=== PATIENT | male | born 1955 | race Caucasian/White ===

== ENCOUNTER 2020-08-11 08:16 | Outpatient (CLI) | payer BC, MEDICARE, SELFPAY | END 2020-08-11 08:17 | disposition home or self-care (01) | LOC: ANHCOVIDVC 08:16 | PROVIDERS: PCP Family Medicine | DX: Z23 Encounter for immunization (principal) | CPT/HCPCS: 0001A; 91300 ==

== ENCOUNTER 2020-09-01 08:12 | Outpatient (CLI) | payer BC, MEDICARE, SELFPAY | END 2020-09-01 08:13 | LOC: ANHCOVIDVC 08:13 | PROVIDERS: PCP Family Medicine | DX: Z23 Encounter for immunization (principal) | CPT/HCPCS: 0002A; 91300 ==

== ENCOUNTER → 2020-09-27 01:57 | Outpatient (CLI) | payer BC, MEDICARE, SELFPAY ==
[2020-09-27 17:04] LABS: SARS-CoV-2 RNA PCR Negative
== END ==
PROVIDERS: PCP Family Medicine; Visit Provider Internal Medicine Gastroenterology
DX: Z01.812 Encounter for preprocedural laboratory examination (principal); Z20.822 Contact with and (suspected) exposure to COVID-19
CPT/HCPCS: C9803; U0003; U0005

== ENCOUNTER 2020-10-27 00:46 | Day surgery (SDC) | payer BC, MEDICARE, SELFPAY ==
[2020-09-22 14:35] VITALS: BMI 29.0
[2020-10-18 10:53] VITALS: BMI 29.8
[2020-10-27 10:49] VITALS: BP 137/94; PULSE 87; RESP 16; TEMP 35.8; O2SAT 94; BMI 29.9
[2020-10-27] MEDS: LACTATED RINGERS 1,000 ML 150 ML IV CONT (10:52)
--- NOTE | 2020-10-27 12:16 | WPDANESEPPF ---
Anes - Initial Pre Proc Eval Procedure: Operation Date: 10/27/20 12:00 Proposed Procedures p Screening Colonoscopy - Fly Altamirano DO Date/Time: 10/27/20 12:16 Surgeon: Fly Altamirano DO Pre Op Diagnosis: hx colon polyps Patient Data Age: 65 Gender: M Height: 1.85 m Weight: 102.8 kg Last Vital Signs Temp 96.5 F L 10/27/20 10:49 Pulse 87 10/27/20 10:49 Resp 16 10/27/20 10:49 BP 137/94 H 10/27/20 10:49 Pulse Ox 94 10/27/20 10:49 Allergies Allergy/AdvReac Type Severity Reaction Status Date / Time Penicillins AdvReac Mild Rash Verified 10/27/20 10:48 Home Medications Medication Instructions Recorded Confirmed Type Lactobacillus acidophilus 1 100 mg PO DAILY 03/14/19 10/27/20 History billion cell capsule atorvastatin 20 mg tablet 20 mg PO DAILY 03/14/19 10/27/20 History desloratadine-pseudoephedrine ER 1 tablet PO Q12H PRN 03/14/19 10/27/20 History 2.5 mg-120 mg tab,ext.release mp 12hr glucosamine HCl 500 mg tablet 500 mg PO BID 03/14/19 10/27/20 History lansoprazole 30 mg capsule,delayed 30 mg PO DAILY 03/14/19 10/27/20 History release nabumetone 750 mg tablet 750 mg PO BID 03/14/19 10/27/20 History tadalafil 20 mg PO DAILY PRN 09/22/20 10/27/20 History xujctnqd-ezbst-plqwr-CF borate 2 tablet PO DAILY 10/18/20 10/27/20 History [[facility]] loratadine [Claritin] 10 mg PO DAILY 10/18/20 10/27/20 History losartan 50 mg PO DAILY 10/18/20 10/27/20 History Patient hx anesthesia problems: none Family hx anesthesia problems: none PMFSH Past Medical History Medical History Deviated septum Hyperlipidemia Surgical History Surgical History History of inguinal hernia repair laparoscopic left inguinal hernia repair with Progrip mesh, [place] assisted 04/16/19 History of tonsillectomy Hx of right inguinal hernia repair Open hernia repair~1979 Family History Family History Father Lung cancer Other Malignant neoplasm of prostate Social History Social History Smoking packs per day: 1.5 Smoking cigarettes per day: 30.0 Years smoked: 30 Smoking pack-years: 45.00 Smoking status: Former smoker Tobacco type: cigarettes Alcohol intake: current Substance use type: does not use Last use: 2020 Living arrangements: alone Gender identity (if verbalized by the patient): Male Spiritual care concerns: No Anes - Eval Final PreProcedure Day of Procedure 10/27/20 12:16 Patient weight: obese Heart: regular rate and rhythm Lungs: clear to auscultation Airway: Mallampati scale class II Neurological: alert and oriented Last oral intake: >/= 8 hours ASA classification: III Emergent: no Anesthetic plan: proceed Anesthesia type and monitoring: general GIVS and standard monitoring Informed Consent: The patient's anesthetic plan and its attendant risks and benefits were discussed with the patient/family/POA. Questions were solicited and answers provided to the satisfaction of the patient/family/POA.
--- NOTE | 2020-10-27 12:39 | WPDGICN ---
GI Consult Note Consult date/time: 10/27/20 12:39 HPI: Reason for visit is colonoscopy. This very pleasant gentleman seen in consultation at the request of the primary physician. Impression: Screening and surveillance colonoscopy. Patient's history adenomatous colon polyps. GERD controlled with medication. AKIL. HLD. HTN. EGD. Obesity. Recommendation: Colonoscopy. This very pleasant gentleman has a history of adenomatous colon polyps. He is here for screening and surveillance colonoscopy. He has a history of GERD well controlled on medication. His GI review systems unremarkable. Physical examination: General: very pleasant patient in no acute distress. HEENT: Head was normocephalic sclerae is clear mouth without masses neck was supple. Heart: Rate rhythm regular without S3 or S4. Lungs: CTA. Abdomen: Soft with no guarding or rigidity. Bowel sounds were active. Neurologic: Cranial nerves 2 through 12 intact. No focal defects. No clonus. Musculoskeletal system: Revealed no joint tenderness or swelling no muscle atrophy. Extremities: Reveal no significant edema. Skin: Warm and dry with normal turgor. Mental status: intact. Patient is alert and oriented. Review of Systems Review of Systems: All systems reviewed & are unremarkable except as noted in HPI and below PMFSH Past Medical History Medical History Deviated septum Hyperlipidemia Surgical History Surgical History History of inguinal hernia repair laparoscopic left inguinal hernia repair with Progrip mesh, daVinci assisted 04/16/19 History of tonsillectomy Hx of right inguinal hernia repair Open hernia repair~1979 Family History Family History Father Lung cancer Other Malignant neoplasm of prostate Social History Social History Smoking packs per day: 1.5 Smoking cigarettes per day: 30.0 Years smoked: 30 Smoking pack-years: 45.00 Smoking status: Former smoker Tobacco type: cigarettes Alcohol intake: current Substance use type: does not use Last use: 2020 Living arrangements: alone Gender identity (if verbalized by the patient): Male Spiritual care concerns: No Meds Home Medications and Allergies Home Medications Medication Instructions Recorded Confirmed Type Lactobacillus acidophilus 1 100 mg PO DAILY 11/15/19 06/30/21 History billion cell capsule atorvastatin 20 mg tablet 20 mg PO DAILY 03/14/19 10/27/20 History desloratadine-pseudoephedrine ER 1 tablet PO Q12H PRN 03/14/19 10/27/20 History 2.5 mg-120 mg tab,ext.release mp 12hr glucosamine HCl 500 mg tablet 500 mg PO BID 03/14/19 10/27/20 History lansoprazole 30 mg capsule,delayed 30 mg PO DAILY 03/14/19 10/27/20 History release nabumetone 750 mg tablet 750 mg PO BID 03/14/19 10/27/20 History tadalafil 20 mg PO DAILY PRN 09/22/20 10/27/20 History hguydjbm-lphbx-yrxzn-CF borate 2 tablet PO DAILY 10/18/20 10/27/20 History [[facility]] loratadine [Claritin] 10 mg PO DAILY 10/18/20 10/27/20 History losartan 50 mg PO DAILY 10/18/20 10/27/20 History Allergies Allergy/AdvReac Type Severity Reaction Status Date / Time Penicillins AdvReac Mild Rash Verified 10/27/20 10:48 Vital Signs Vital Signs - 24 hr 10/27/20 10:49 Temperature 35.8 C L Pulse Rate 87 Respiratory Rate 16 Blood Pressure 137/94 H Pulse Oximetry 94
[2020-10-27 13:09] VITALS: BP 127/89; PULSE 79; RESP 20; O2SAT 95
[2020-10-27 13:19] VITALS: BP 134/84; PULSE 64; RESP 20; O2SAT 99
[2020-10-27 13:29] VITALS: BP 141/90; PULSE 67; RESP 19; O2SAT 97
== END 2020-10-27 13:42 | disposition home or self-care (01) ==
PROVIDERS: PCP Family Medicine; Visit Provider Internal Medicine Gastroenterology
PROC: 0DJD8ZZ Inspection of Lower Intestinal Tract, Via Natural or Artificial Opening Endoscopic (ICD-10-PCS; CPT 45378; principal; 2020-10-27 12:00)
DX: Z12.11 Encounter for screening for malignant neoplasm of colon (principal); K63.3 Ulcer of intestine; K62.1 Rectal polyp; K57.30 Diverticulosis of large intestine without perforation or abscess without bleeding; K64.8 Other hemorrhoids; I10 Essential (primary) hypertension; E78.5 Hyperlipidemia, unspecified; G47.33 Obstructive sleep apnea (adult) (pediatric); E66.9 Obesity, unspecified; Z68.29 Body mass index [BMI] 29.0-29.9, adult; Z87.891 Personal history of nicotine dependence
CPT/HCPCS: 45381; 45380; 88305; J2704; J7120

== ENCOUNTER 2021-09-12 01:03 | Day surgery (SDC) | payer MEDICARE, SELFPAY ==
[2021-09-09 10:10] VITALS: BMI 30.8
[2021-09-12] VITALS (24 sets, daily range): BP systolic 112–142; BP diastolic 69–96; PULSE 58–85; RESP 14–24; TEMP 36.3–36.9; O2SAT 91–97; BMI 31.2; BMI 32.0
[2021-09-12] MEDS: SODIUM CHLORIDE 0.9% IV 500 ML 100 ML IV CONT (09:10)
[2021-09-12 09:12] LABS: Basophils Absolute Auto 0.1 K/mm3 (0.0-0.1); Basophils Percent Auto 1.3 % (0.2-1.2); Eosinophils Absolute Auto 0.2 K/mm3 (0-0.3); Eosinophils Percent Auto 4.1 % (0-4.4); Hematocrit 48.6 % (42.0-52.0); Hemoglobin 16.4 g/dL (14.0-18.0); Immature Granulocyte Absolute 0.02 K/mm3 (0.00-0.031); Immature Granulocyte Percent A 0.4 % (0-0.5); Lymphocytes Absolute Auto 1.48 K/mm3 (0.9-3.2); Lymphocytes Percent Auto 26.4 % (18.3-44.2); Mean Corpuscular HGB Conc 33.7 g/dl (32-36); Mean Corpuscular Hemoglobin 29.5 pg (26-34); Mean Corpuscular Volume 87.6 fl (80-100); Mean Platelet Volume 9.1 fl (7.4-10.4); Monocytes Absolute Auto 0.5 K/mm3 (0.1-0.6); Monocytes Percent Auto 8.8 % (2.6-8.5); Neutrophils Absolute Auto 3.3 K/mm3 (1.3-6.7); Platelet Count Result 220 k/mm3 (150-375); Red Blood Count 5.55 M/mm3 (4.6-6.20); Red Cell Distribution Width 12.9 % (11.5-14.5); White Blood Count 5.6 K/mm3 (4.5-10.0)
[2021-09-12 09:22] LABS: Anion Gap 6 mmol/L (8-16); Blood Urea Nitrogen 13 mg/dL (9-20); Calcium 9.1 mg/dL (8.4-10.2); Carbon Dioxide 29 mmol/L (22-30); Chloride 100 mmol/L (98-107); Estimated CRCL calculation 74 ml/min; Estimated Glomerular Filt Rate > 60; Glucose 116 mg/dL (65-110); Potassium 4.4 mmol/L (3.4-5.0); Sodium 135 mmol/L (137-145)
--- NOTE | 2021-09-12 09:48 | WPDMODSED ---
Moderate Sedation Note-Pt Data Patient Data Diagnosis: Exertional dyspnea Abnormal stress test Present Complaint: ADAMS Procedure to be performed/Plan: Left heart catheterization Allergies Allergy/AdvReac Type Severity Reaction Status Date / Time Penicillins AdvReac Mild Rash Verified 09/12/21 08:59 Home Medications Medication Instructions Recorded Confirmed Type Lactobacillus acidophilus 1 100 mg PO DAILY 03/14/19 09/12/21 History billion cell capsule atorvastatin 20 mg tablet 20 mg PO DAILY 03/14/19 09/12/21 History lansoprazole 30 mg capsule,delayed 30 mg PO DAILY 03/14/19 09/12/21 History release nabumetone 750 mg tablet 750 mg PO BID 03/14/19 09/12/21 History tadalafil 20 mg PO DAILY PRN 09/22/20 09/12/21 History uhovkrsk-ildto-oukvz-CF borate 1 tablet PO DAILY 10/18/20 09/12/21 History [[facility] [place]] losartan 50 mg PO DAILY 10/18/20 09/12/21 History loratadine-pseudoephedrine 1 tablet PO 09/09/21 History [Claritin-D 24 Hour] aspirin 81 mg PO DAILY 09/12/21 09/12/21 History Current Medications: Active Medications Sodium Chloride (Normal Saline Iv) 500 mls @ 100 mls/hr IV CONT .Q5H SANDY Last Admin: 09/12/21 09:10 Dose: 100 mls/hr Documented by: Sedation/Anesthesia: No previous sedation/anesthesia problems (including family history). [facility] Past Medical History Medical History Deviated septum Hyperlipidemia Hypertension, essential Surgical History Surgical History History of inguinal hernia repair laparoscopic left inguinal hernia repair with Progrip mesh, daVinci assisted 04/16/19 History of tonsillectomy Hx of right inguinal hernia repair Open hernia repair~1979 Status post correction of deviated nasal septum Family History Family History Father Lung cancer Sibling Breast cancer Other Malignant neoplasm of prostate Social History Social History Smoking packs per day: 1.5 Smoking cigarettes per day: 30.0 Years smoked: 30 Smoking pack-years: 45.00 Smoking status: Former smoker Tobacco type: cigarettes Second hand tobacco smoke exposure: No Smoking end date: 05/31/20 Alcohol intake: current Alcohol use details: Socially Substance use type: does not use Last use: 2020 Living arrangements: with family Gender identity (if verbalized by the patient): Male Spiritual care concerns: No Mod Sed Physical Exam Physical Exam Pre Procedural Exam: Normal: Neck, Throat, Airway, Lungs, Heart Size, Heart Rate, Heart Rhythm, Neuro Exam and Extremities and Variation: Appearance (Overweight gentleman no apparent distress) Hours since solid foods: 12 Hours since liquid intake: 12 Mallampati Classification: class II Internal Medicine - PN: Obj Da Meds/Results Medications: Active Medications Generic Name Dose Route Start Last Admin Trade Name Freq PRN Reason Stop Dose Admin Sodium Chloride 500 mls @ 100 mls/hr 09/12/21 08:30 09/12/21 09:10 Normal Saline Iv IV CONT 100 mls/hr .Q5H SANDY Administration Labs CBC & Chem 7: 09/12/21 08:57 09/12/21 08:57 Labs: Laboratory Results - last 24 hr 09/12/21 09/12/21 08:57 08:57 WBC 5.6 RBC 5.55 Hgb 16.4 Hct 48.6 MCV 87.6 MCH 29.5 MCHC 33.7 RDW 12.9 Plt Count 220 MPV 9.1 Immature Gran % (Auto) 0.4 Neut % (Auto) 59.0 Lymph % (Auto) 26.4 [place] % (Auto) 8.8 H Eos % (Auto) 4.1 Baso % (Auto) 1.3 H Lymph # (Auto) 1.48 [place] # (Auto) 0.5 Eos # (Auto) 0.2 Baso # (Auto) 0.1 Abs Immat Gran (auto) 0.02 Absolute Neuts (auto) 3.3 Absolute Nucleated RBC 0.0 Nucleated RBC % 0.0 Sodium 135 L Potassium 4.4 Chloride 100 Carbon Dioxide 29 Anion Gap 6 L BUN 13 Creatinine
--- NOTE | 2021-09-12 11:19 | ECG_ITS ---
Measurements Intervals [place] Rate: 64 P: 59 NC: 214 QRS: -38 QRSD: 125 T: -4 QT: 434 QTc: 450 Interpretive Statements SINUS RHYTHM WITH FIRST DEGREE AV BLOCK LEFT AXIS DEVIATION ANTEROSEPTAL INFARCT, AGE INDETERMINATE INFERIOR INFARCT, AGE INDETERMINATE ABNORMAL ECG Electronically Signed On 09-12-2021 12:36:50 CDT by Tc Snyder D.O.
--- NOTE | 2021-09-12 11:22 | WPDCARDPROC ---
Cardiac Cath Procedure Note Date of procedure:: 09/12/21 Performing physician:: Denilson Prabhakar MD Indication:: exertional dyspnea/abnormal stress test Brief clinical history:: this is a 66-year-old patient without prior history of coronary disease who does have hypertension and dyslipidemia. Recently a stress test demonstrated very poor functional capacity and reduce location of chest pain at a low workload although no significant ST segment deviation. Procedure Procedure performed:: Left ventriculogram coronary angiogram PCI(STAR) to the right artery Sedation/Medication given:: fentanyl 100 mg Versed 2 mg case start time 10:12 a.m. case end time 11:13 a.m. sedation provided by Arturo Cooley RN, trained observer Access site:: right femoral artery Estimated blood loss:: 50 cc Procedure note:: patient was brought to the cardiac catheterization lab in postabsorptive state where the right femoral triangle was prepared and draped in the usual fashion. Anesthesia was provided with 1% lidocaine infiltrated locally. Using the modified Seldinger technique a 5 [place] vascular sheath was placed into the right femoral artery after this left heart catheterization was carried out. A 5 [place] angled pigtail catheter was used to measure left-sided hemodynamics and to inject LV g in the CHAVEZ projection. Following this standard 5 [place] FL4 catheter was used to engage and inject the left coronary artery in multiple projections a 5 [place] JR4 catheter was used to engage and inject the right coronary artery in orthogonal projections. Following this the cineangiograms were reviewed and PCI of the right coronary artery was recommended and carried out as detailed below. Prior to PCI the 5 [place] sheath was exchanged over a guidewire for a 6 [place] sheath. The patient was systemically anticoagulated with a bolus and infusion of Angiomax during this intervention. He received aspirin and 600 mg of clopidogrel at the start of PCI. Following the case the sheath is sutured into position the pace was taken to the holding area for recovery and sheath removal. He was reporting [id number] 4 to 5/10 chest pain at the end of the procedure upon leaving the laborer powerhouse. There was no evidence of a groin hematoma. Findings:: Hemodynamics: Central aortic pressure was 138/78 left ventricle 142/0 end-diastolic pressure 16. There was no systolic gradient on pullback across the aortic valve. Left ventricle: The LV is normal in size all segments appropriately the global ejection fraction visually estimates to be about 55%. The left main coronary artery is nicely patent the left anterior descending is a moderate caliber artery extending down to around the apex. There is mild about 30-40% stenosis at the LAD ostium. In no projection does this appear to be flow-limiting the remainder of the LAD is unremarkable. The circumflex is a moderate caliber artery giving rise to the marginal branches the circumflex system is free of significant disease. The right coronary artery is large in caliber and dominant to the posterior circulation. There is a significant area of atherosclerosis beginning with an eccentric shelf-like plaque representing about 80% stenosis in the proximal to mid RCA then there is an area of ectatic dilatation followed by another area of about 70% stenosis in the 2nd portion of the RCA. The RPDA and RPL branches are free of significant disease. Intervention: The right coronary artery was engaged using a 6 [place] WRP guiding catheter. I used a 0.014 BMW guidewire to wire the vessel and advanced easily down into the RPL. The area in question was pre-dilated using a 3 x 20 mm balloon at nominal pressure 2 inflations were made to cover the entire area of disease described above. Following this I deployed a 4.0 x 26 mm [employer] drug-eluting stent attempting to cover the entire area of disease. device was deployed at 12 atmospheres. Follow
[2021-09-12] MEDS: SODIUM CHLORIDE 0.9% IV 1,000 ML 125 ML IV CONT (13:12)
--- NOTE | 2021-09-12 16:15 | ADMGEN ---
This patient, Brock Ledezma, was admitted to IMU Room 209-01. Patient/family oriented to hospital policies and general routines including ID bracelet, bed and alarms, visiting hours, pain management, procedures, bathroom and other care routines, personal items, smoking policy, room service/diet, and visiting hours. Information on how to activate the Rapid Response Team has been discussed. Patient/Family are encouraged to report perceived risks to care and to ask questions if they do not understand what they are told or what they should do.
[2021-09-13] VITALS (7 sets, daily range): BP systolic 120–130; BP diastolic 75–79; PULSE 63–91; RESP 12–16; TEMP 36.7–37.1; O2SAT 94
--- NOTE | 2021-09-13 05:11 | ECG_ITS ---
Measurements Intervals [place] Rate: 94 P: 54 PA: 167 QRS: -56 QRSD: 122 T: 60 QT: 346 QTc: 435 Interpretive Statements SINUS RHYTHM INTRAVENTRICULAR CONDUCTION DELAY ANTEROSEPTAL INFARCT, AGE INDETERMINATE INFERIOR INFARCT, AGE INDETERMINATE ABNORMAL ECG Electronically Signed On 09-13-2021 9:52:59 CDT by Tc Snyder D.O.
--- NOTE | 2021-09-13 08:29 | PM.DS ---
DS: Admitting Diagnosis Discharge Date 09/13/2021 Admitting Diagnosis Abnormal stress test DS: Discharge Diagnosis Discharge Diagnosis (1) CAD (coronary artery disease): Code(s): I25.10 - Atherosclerotic heart disease of [place] coronary artery without angina pectoris Status: Acute Assessment and Plan: Coronary angiography yesterday revealed significant disease in his large dominant RCA starting with a high-grade shelf-like lesion followed by an area of ectatic dilatation and then a moderate stenosis in the 2nd portion of the RCA. This entire area was covered using 4 x 26 and 4 x 13 mm Orsiro drug-eluting stents described above. He was also found to have mild ostial LAD disease as described above approximately 40% stenosis which is not flow-limiting. He is feeling well s/p PCI. No chest pain, shortness of breath, or palpitations. No ectopy noted on telemetry. Appropriate for discharge home today. Continue ASA Continue Plavix Increase atorvastatin to 40mg daily Continue Losartan 50mg daily Continue aggressive lifestyle modifications Outpatient follow up in 2-3 weeks Cardiac rehab referral DS: Summary Hospital Course Hospital Course: Presented to the hospital for elective left heart catheterization yesterday to follow up on abnormal stress test results. Coronary angiography yesterday revealed significant disease in his large dominant RCA starting with a high-grade shelf-like lesion followed by an area of ectatic dilatation and then a moderate stenosis in the 2nd portion of the RCA. This entire area was covered using 4 x 26 and 4 x 13 mm Orsiro drug-eluting stents described above. He was also found to have mild ostial LAD disease as described above approximately 40% stenosis which is not flow-limiting. He is feeling well s/p PCI. No chest pain, shortness of breath, or palpitations. No ectopy noted on telemetry. Appropriate for discharge home today. Status at Discharge Functional status at discharge: independent ambulation Time Spent with Patient Time attestation: Total time spent providing and/or coordinating discharge services: Time spent: Greater than 30 minutes Exam Const: General: comfortable and no acute distress HENMT: Head: normal to inspection Ears: hearing grossly abnormal bilaterally Mouth: Yes Normal oral and palatal mucosa present Eyes: General: appearance normal, both eyes and all related structures Neck: Neck: supple and no JVD Carotids: no bruits Resp: Auscultation: clear to auscultation bilaterally Cardio: Rate: regular rate Rhythm: regular rhythm GI: GI Palp: Yes Soft to palpation Skin: General skin exam: normal color Other: R groin arterial access site free from bleeding, hematoma, pain, bruit. Extrem: General: normal to inspection Psych: Appearance: grossly normal Mental Status: mental status grossly normal DS: Data Data Completed and Pending Labs on day of discharge: Labs from last 24 hours 09/12/21 09/12/21 08:57 08:57 WBC 5.6 RBC 5.55 Hgb 16.4 Hct 48.6 MCV 87.6 MCH 29.5 MCHC 33.7 RDW 12.9 Plt Count 220 MPV 9.1 Immature Gran % (Auto) 0.4 Neut % (Auto) 59.0 Lymph % (Auto) 26.4 [place] % (Auto) 8.8 H Eos % (Auto) 4.1 Baso % (Auto) 1.3 H Lymph # (Auto) 1.48 [place] # (Auto) 0.5 Eos # (Auto) 0.2 Baso # (Auto) 0.1 Abs Immat Gran (auto) 0.02 Absolute Neuts (auto) 3.3 Absolute Nucleated RBC 0.0 Nucleated RBC % 0.0 Sodium 135 L Potassium 4.4 Chloride 100 Carbon Dioxide 29 Anion Gap 6 L BUN 13 Creatinine 1.10 Estim Creat Clear Calc 74 Estimated GFR > 60 Glucose 116 H Calcium 9.1 Discharge Plan Discharge Patient Disposition: Home, Self-Care Discharge Instructions: [id number]
[2021-09-13] MEDS: ASPIRIN 81 MG CHEWABLE TABLET PO (10:16)
[2021-09-13] MEDS: ATORVASTATIN 40 MG TABLET PO (10:16)
[2021-09-13] MEDS: CLOPIDOGREL BISULFATE 75 MG TABLET PO (10:16)
[2021-09-13] MEDS: LOSARTAN POTASSIUM 50 MG TABLET PO (10:16)
== END 2021-09-13 11:15 | disposition home or self-care (01) ==
LOC: ANHCATHLAB 08:45 → ANHIMU 17:02
PROVIDERS: PCP Family Medicine; Visit Provider Specialist
PROC: 4A023N7 Measurement of Cardiac Sampling and Pressure, Left Heart, Percutaneous Approach (ICD-10-PCS; CPT 93452; principal; 2021-09-12 10:00)
DX: I25.10 Atherosclerotic heart disease of native coronary artery without angina pectoris (principal); R94.39 Abnormal result of other cardiovascular function study; R06.09 Other forms of dyspnea; I10 Essential (primary) hypertension; E78.5 Hyperlipidemia, unspecified; Z87.891 Personal history of nicotine dependence; Z79.82 Long term (current) use of aspirin
CPT/HCPCS: 36415; 80048; 85025; 93005; 93458; A9270; C1725; C1768; C1769; C1874; C1887; C1894; C9600; J0583; J1644; J2250; J3010; J7030; J7040

== ENCOUNTER 2022-01-09 11:00 | Outpatient (RCR) | payer MEDICARE, SELFPAY ==
[2021-10-14 11:33] VITALS: BP 124/78; PULSE 73; O2SAT 96
== END 2022-01-09 18:20 | disposition home or self-care (01) ==
LOC: ANHCPREHAB 11:00
PROVIDERS: PCP Family Medicine; Visit Provider Nurse Practitioner
DX: I25.10 Atherosclerotic heart disease of native coronary artery without angina pectoris (principal)
CPT/HCPCS: 93798

== ENCOUNTER 2022-05-04 09:41 | Emergency (ER) | payer MEDICARE, SELFPAY ==
--- NOTE | ~2022-05-04 | CT_ITS ---
EXAMINATION: CT soft tissue neck w con DATE: 05/04/2022 14:52 INDICATION: Neck pain. Flulike symptoms. TECHNIQUE: Computed tomography (CT) of the neck was performed with 75 mL Omnipaque-350 intravenous co ntrast. Automated exposure control and iterative reconstruction technique were employed. The dose-analisa gth product was 680.19 mGy-cm. COMPARISON: None FINDINGS: There is mild emphysema. There are no pathologically enlarged lymph nodes. There is plaque in the proximal internal carotid arteries with less than 50% stenosis relative to normal distal arter y lumen diameters. The pharynx and larynx are unremarkable. There is mild mucosal thickening in the p aranasal sinuses. There is a small right mastoid effusion. There is severe cervical spondylosis and m ild thoracic spondylosis. IMPRESSION: 1. Mild emphysema. Reviewed, dictated and finalized at location A. NISTRATIVE JOB TITLES IMPRESSION: 1. Mild emphysema.
--- NOTE | ~2022-05-04 | XR_ITS ---
EXAMINATION: XR chest 2V DATE: 05/04/2022 10:26 INDICATION: Neck stiffness. TECHNIQUE: Frontal and lateral views of the chest were obtained. 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 There is mild atelectasis at left lung base. No pleural effusion or pneumothorax. The heart size is normal. There i s mild chronic anterior wedging of vertebral bodies at thoracolumbar junction. IMPRESSION: 1. Mild atelectasis at left lung base. Reviewed, dictated and finalized at location A. ROUGHER
[2022-05-04 09:43] VITALS: BP 120/59; PULSE 73; RESP 18; TEMP 36.5; O2SAT 94
--- NOTE | 2022-05-04 09:48 | ECG_ITS ---
Measurements Intervals [place] Rate: 73 P: 37 NV: 172 QRS: -64 QRSD: 122 T: 32 QT: 389 QTc: 430 Interpretive Statements SINUS RHYTHM LEFT AXIS DEVIATION INTRAVENTRICULAR CONDUCTION DELAY ANTEROSEPTAL INFARCT, AGE INDETERMINATE INFERIOR INFARCT, AGE INDETERMINATE BASELINE ARTIFACT- I, III, AVR, AVL ABNORMAL ECG COMPARED TO ECG 09/13/2021 09:49:01 NO SIGNIFICANT CHANGES Electronically Signed On 05-04-2022 12:44:48 MANAGER DELI by Tc Snyder D.O.
[2022-05-04 10:11] LABS: Basophils Absolute Auto 0.1 K/mm3 (0.0-0.1); Basophils Percent Auto 0.5 % (0.2-1.2); Eosinophils Absolute Auto 0.1 K/mm3 (0-0.3); Eosinophils Percent Auto 1.2 % (0-4.4); Hematocrit 43.8 % (42.0-52.0); Hemoglobin 15.1 g/dL (14.0-18.0); Immature Granulocyte Absolute 0.04 K/mm3 (0.00-0.031); Immature Granulocyte Percent A 0.4 % (0-0.5); Lymphocytes Absolute Auto 1.05 K/mm3 (0.9-3.2); Lymphocytes Percent Auto 11.2 % (18.3-44.2); Mean Corpuscular HGB Conc 34.5 g/dl (32-36); Mean Corpuscular Hemoglobin 30.5 pg (26-34); Mean Corpuscular Volume 88.5 fl (80-100); Mean Platelet Volume 8.9 fl (7.4-10.4); Monocytes Absolute Auto 0.6 K/mm3 (0.1-0.6); Monocytes Percent Auto 6.2 % (2.6-8.5); Neutrophils Absolute Auto 7.6 K/mm3 (1.3-6.7); Neutrophils Percent Auto 80.5 % (45.5-73.1); Platelet Count Result 214 k/mm3 (150-375); Red Blood Count 4.95 M/mm3 (4.6-6.20); Red Cell Distribution Width 12.5 % (11.5-14.5); White Blood Count 9.4 K/mm3 (4.5-10.0)
[2022-05-04 10:22] LABS: Alanine Aminotransferase 31 U/L (6-50); Albumin Level 4.2 g/dL (3.5-5.1); Alkaline Phosphatase 119 U/L (38-126); Anion Gap 5 mmol/L (8-16); Aspartate Amino Transferase 24 U/L (17-59); Bilirubin,Total 0.5 mg/dL (0.2-1.3); Blood Urea Nitrogen 11 mg/dL (9-20); Calcium 8.8 mg/dL (8.4-10.2); Carbon Dioxide 27 mmol/L (22-30); Chloride 101 mmol/L (98-107); Estimated CRCL calculation 89 ml/min; Estimated Glomerular Filt Rate > 60; Glucose 140 mg/dL (65-110); Lipase 29 U/L (23-300); Potassium 4.3 mmol/L (3.4-5.0); Sodium 133 mmol/L (137-145)
[2022-05-04 10:25] LABS: INR 1.1; Partial Thromboplastin Time 25.4 SECONDS (22.3-36.8); Prothrombin Time 13.3 Seconds (11.1-14.7)
[2022-05-04 10:34] LABS: Troponin I < 0.012 ng/mL (0.000-0.034)
[2022-05-04 12:12] VITALS: BP 115/61; PULSE 82; RESP 17; TEMP 36.8; O2SAT 95
[2022-05-04 13:20] LABS: Troponin I < 0.012 ng/mL (0.000-0.034)
--- NOTE | 2022-05-04 14:17 | ED.NECK ---
HPI - Neck Pain/Injury General Chief Complaint: Neck Pain/Injury Stated Complaint: neck and shoulder pain Time Seen by Provider: 05/04/22 14:16 Source: patient and family Mode of arrival: wheelchair Limitations: no limitations History of Present Illness HPI Narrative: The patient is a 67-year-old male with a history of hypertension, hyperlipidemia, coronary artery disease, history of cardiac stenting, presenting to the emergency department for evaluation of neck pain. Patient with onset of neck pain gradually over the past 48 hours. Patient states he awakened with the pain after perhaps sleeping on his neck the wrong way. Patient reports an aching sensation on both sides of his neck that is exacerbated with movement. He reports radiation of the pain into his shoulders. He reports cough that has been ongoing over the past week after he and his had symptoms of a viral infection including runny nose and congestion. Patient reports his cough is much improved and he denies anterior chest pain or shortness of breath. He denies pleuritic pain. Patient denies fever, chills, vision changes, nausea or vomiting. He denies altered mentation or confusion. Patient's states he is acting at baseline. Patient was given Toradol in route by EMS and that did improve his pain. Patient denies any upper extremity weakness or numbness. No focal deficits. Related Data Home Medications Medication Instructions Recorded Confirmed Lactobacillus acidophilus 1 100 mg PO DAILY 03/14/19 10/14/21 billion cell capsule (Probiotic Gold Acidophilus) lansoprazole 30 mg capsule,delayed 30 mg PO DAILY 03/14/19 10/14/21 release glucosam 750 mg-chondroi 100 1 tablet PO DAILY 10/18/20 10/14/21 mg-hyalur 1.65 mg-CF borate 108 mg tablet ([employer]) losartan 50 mg tablet 50 mg PO DAILY 10/18/20 10/14/21 loratadine-pseudoephedrine ER 10 1 tablet PO DAILY 09/09/21 10/14/21 mg-240 mg tablet,extended [id number] (Claritin-D 24 Hour) aspirin 81 mg tablet 81 mg PO DAILY 09/12/21 10/14/21 nitroglycerin 0.4 mg sublingual 0.4 mg sublingual Q5M PRN Chest 10/14/21 10/14/21 tablet Pain Allergies Allergy/AdvReac Type Severity Reaction Status Date / Time Penicillins AdvReac Mild Rash Verified 09/12/21 08:59 Review of Systems Review of Systems: CONSTITUTIONAL: Denies fever, chills, or sweats. ENT: Denies rhinorrhea, congestion, sore throat, or otalgia. Reports neck pain and shoulder pain. CARDIOVASCULAR: Denies chest pain, palpitations, or edema. RESPIRATORY: Reports cough without shortness of breath. GASTROINTESTINAL: Denies abdominal pain, nausea, vomiting, or diarrhea. GENITOURINARY: Denies dysuria or hematuria. SKIN: Denies rash or itching. MUSCULOSKELETAL: Denies back pain, joint pain, reports neck pain NEUROLOGIC: Denies headache, numbness, or focal weakness. [facility] Past Medical History Medical History (Updated 05/04/22 @ 15:17 by Ligia Garcia MD) Cervical strain Deviated septum Hyperlipidemia Hypertension, essential Surgical History Surgical History History of inguinal hernia repair laparoscopic left inguinal hernia repair with Progrip mesh, daVinci assisted 04/16/19 History of tonsillectomy Hx of right inguinal hernia repair Open hernia repair~1979 Status post correction of deviated nasal septum Family History Family History Father Lung cancer Sibling Breast cancer Hypertension Other No problems noted. Social History Social History Smoking packs per day: 1.5 Smoking cigarettes per day: 30.0 Years smoked: 45 Smoking pack-years: 67.50 Smoking status: Former smoker Tobacco type: cigarettes Second hand tobacco smoke exposure: No Smoking end date: 06/14/21 Alcohol intake: current Drinks per week: 1 Alcohol use
[2022-05-04] MEDS: ACETAMINOPHEN 500 MG TABLET 1000 MG PO (15:42)
[2022-05-04] MEDS: diazePAM (*CRX) 5 MG TABLET PO (15:42)
[2022-05-04 15:52] VITALS: BP 139/94; PULSE 80; RESP 18; TEMP 36.7; O2SAT 100
== END 2022-05-04 15:54 | disposition home or self-care (01) ==
PROVIDERS: Emergency Medicine; Emergency Provider Emergency Medicine; PCP Family Medicine
DX: S16.1XXA Strain of muscle, fascia and tendon at neck level, initial encounter (principal); M43.6 Torticollis; M47.812 Spondylosis without myelopathy or radiculopathy, cervical region; E78.5 Hyperlipidemia, unspecified; I10 Essential (primary) hypertension; I25.10 Atherosclerotic heart disease of native coronary artery without angina pectoris; Z95.5 Presence of coronary angioplasty implant and graft; Z87.891 Personal history of nicotine dependence; J43.9 Emphysema, unspecified; I45.9 Conduction disorder, unspecified; R94.31 Abnormal electrocardiogram [ECG] [EKG]; X58.XXXA Exposure to other specified factors, initial encounter
CPT/HCPCS: 36415; 70491; 71046; 80053; 83690; 84484; 85025; 85610; 85730; 93005; 99284; A9270; J1100; Q9967

== ENCOUNTER 2022-09-28 00:25 | Day surgery (SDC) | payer MEDICARE, SELFPAY ==
[2022-09-15 14:49] VITALS: BMI 29.6
[2022-09-28 06:52] VITALS: BP 128/73; PULSE 72; RESP 18; TEMP 36.1; O2SAT 94
[2022-09-28] MEDS: LACTATED RINGERS 1,000 ML 150 ML IV CONT (07:04)
--- NOTE | 2022-09-28 07:28 | PM.HPGS ---
History of Present Illness History of Present Illness Consent: Risks, benefits, and alternatives have been discussed and questions answered. Patient agrees to proceed with procedure. Chief complaint: hx colon polyps Narrative: Brock Ledezma is a 67 year old male Presents for screening colonoscopy. Patient has a history of colonoscopy 2 years ago that revealed the colon ulceration. Biopsies were benign. Patient also had an associated sessile serrated adenomatous colon polyp. To ensure complete resolution of the colitis colonoscopy was recommended. This was delayed because last year he had heart stents. Patient no longer on anticoagulants. Patient presents today for follow-up screening colonoscopy. Review of Systems Review of Systems: Review of systems noncontributory. [facility] Past Medical History Medical History (Updated 08/02/22 @ 11:06 by Benja Delatorre MD) Atherosclerosis of both carotid arteries Cervical strain Colon ulcer Deviated septum Emphysema lung GERD (gastroesophageal reflux disease) Hypertension, essential Personal history of colonic polyps Pure hypercholesterolemia, unspecified Surgical History Surgical History (Updated 08/02/22 @ 10:49 by Benja Delatorre MD) History of inguinal hernia repair laparoscopic left inguinal hernia repair with Progrip mesh, daVinci assisted 04/16/19 History of tonsillectomy Hx of right inguinal hernia repair Open hernia repair~1979 Status post correction of deviated nasal septum Family History Family History Father Lung cancer Sibling Breast cancer Hypertension Other No problems noted. Social History Social History (Updated 08/02/22 @ 10:18 by Kevin Sy MA) Smoking packs per day: 1.5 Smoking cigarettes per day: 30.0 Years smoked: 45 Smoking pack-years: 67.50 Smoking status: Former smoker Tobacco type: cigarettes Second hand tobacco smoke exposure: No Smoking end date: 06/14/21 Alcohol intake: current Drinks per week: 1 Alcohol use details: Socially Substance use: never Substance use type: does not use Lack of Transportation: No Lack of Food: Never True Current Housing: I Have Housing Concerned About Future Housing: No Difficulty Paying Gas/Electric Bills: No Difficulty Paying for Meds: No Currently Unemployed: No Difficulty w/ Childcare or Family Care: No Living arrangements: with family Occupation/Education: retired Gender identity (if verbalized by the patient): Male Sexual Orientation (if Verbalized by the Patient): Straight or Heterosexual Spiritual care concerns: No Meds Home Medications and Allergies Home Medications Medication Instructions Recorded Confirmed Type Lactobacillus acidophilus 1 100 mg PO DAILY 03/14/19 09/15/22 History billion cell capsule (Probiotic Gold Acidophilus) lansoprazole 30 mg capsule,delayed 30 mg PO DAILY 03/14/19 09/15/22 History release glucosam 750 mg-chondroi 100 1 tablet PO DAILY 10/18/20 09/15/22 History mg-hyalur 1.65 mg-CF borate 108 mg tablet ([facility] [employer]) losartan 50 mg tablet 50 mg PO DAILY 10/18/20 09/15/22 History aspirin 81 mg tablet 81 mg PO DAILY 09/12/21 09/15/22 History atorvastatin 40 mg tablet 40 mg PO DAILY 30 days #30 tabs 09/13/21 09/15/22 Rx nitroglycerin 0.4 mg sublingual 0.4 mg sublingual Q5M PRN Chest 10/14/21 09/15/22 History tablet Pain acetaminophen 500 mg capsule 500 mg PO Q6H PRN fever or pain 05/04/22 09/15/22 Rx #30 caps loratadine 10 mg tablet (Claritin) 10 mg PO DAILY 09/15/22 09/15/22 History Allergies Allergy/AdvReac Type Severity Reaction Status Date / Time Penicillins AdvReac Mild Rash Verified 09/28/22 06:51 Vital Signs Vital Signs - 24 hr 09/28/22 06:52 Temperature 97 F L Pulse Rate 72 Respiratory Rate 18 Blood Pressure 128/73 Pulse Oximetry 94 Oxygen Delivery Room Air Exam
--- NOTE | 2022-09-28 07:29 | P.PNAN_ITS ---
Anes - Initial Pre Proc Eval Procedure: Operation Date: 09/28/22 08:00 Proposed Procedures p Colonoscopy - Fly Ma MD Date/Time: 09/28/22 07:29 Surgeon: Fly Ma MD Pre Op Diagnosis: hx colon polyps Patient Data Age: 67 Gender: M Height: 1.88 m Weight: 105.4 kg Last Vital Signs Temp 97 F L 09/28/22 06:52 Pulse 72 09/28/22 06:52 Resp 18 09/28/22 06:52 BP 128/73 09/28/22 06:52 Pulse Ox 94 09/28/22 06:52 O2 Del Method Room Air 09/28/22 06:52 Allergies Allergy/AdvReac Type Severity Reaction Status Date / Time Penicillins AdvReac Mild Rash Verified 09/28/22 06:51 Home Medications Medication Instructions Recorded Confirmed Type Lactobacillus acidophilus 1 100 mg PO DAILY 03/14/19 09/15/22 History billion cell capsule (Probiotic Gold Acidophilus) lansoprazole 30 mg capsule,delayed 30 mg PO DAILY 03/14/19 09/15/22 History release glucosam 750 mg-chondroi 100 1 tablet PO DAILY 10/18/20 09/15/22 History mg-hyalur 1.65 mg-CF borate 108 mg tablet (Medium) losartan 50 mg tablet 50 mg PO DAILY 10/18/20 09/15/22 History aspirin 81 mg tablet 81 mg PO DAILY 09/12/21 09/15/22 History atorvastatin 40 mg tablet 40 mg PO DAILY 30 days #30 tabs 09/13/21 09/15/22 Rx nitroglycerin 0.4 mg sublingual 0.4 mg sublingual Q5M PRN Chest 10/14/21 09/15/22 History tablet Pain acetaminophen 500 mg capsule 500 mg PO Q6H PRN fever or pain 05/04/22 09/15/22 Rx #30 caps loratadine 10 mg tablet (Claritin) 10 mg PO DAILY 09/15/22 09/15/22 History Patient hx anesthesia problems: none Family hx anesthesia problems: none Results Review: All pre-operative results and documents have been reviewed as part of the pre- operative evaluation. [facility] Past Medical History Medical History (Updated 08/02/22 @ 11:06 by Benja Delatorre MD) Atherosclerosis of both carotid arteries Cervical strain Colon ulcer Deviated septum Emphysema lung GERD (gastroesophageal reflux disease) Hypertension, essential Personal history of colonic polyps Pure hypercholesterolemia, unspecified Surgical History Surgical History (Updated 08/02/22 @ 10:49 by Benja Delatrore MD) History of inguinal hernia repair laparoscopic left inguinal hernia repair with Progrip mesh, daVinci assisted 04/16/19 History of tonsillectomy Hx of right inguinal hernia repair Open hernia repair~1979 Status post correction of deviated nasal septum Family History Family History Father Lung cancer Sibling Breast cancer Hypertension Other No problems noted. Social History Social History (Updated 08/02/22 @ 10:18 by Kevin Sy MA) Smoking packs per day: 1.5 Smoking cigarettes per day: 30.0 Years smoked: 45 Smoking pack-years: 67.50 Smoking status: Former smoker Tobacco type: cigarettes Second hand tobacco smoke exposure: No Smoking end date: 06/14/21 Alcohol intake: current Drinks per week: 1 Alcohol use details: Socially Substance use: never Substance use type: does not use Lack of Transportation: No Lack of Food: Never True C
[2022-09-28 08:20] VITALS: BP 109/68; PULSE 76; RESP 16; O2SAT 94
[2022-09-28 08:30] VITALS: BP 106/69; PULSE 68; RESP 18; O2SAT 94
[2022-09-28 08:40] VITALS: BP 123/79; PULSE 63; RESP 18; O2SAT 96
== END 2022-09-28 08:57 | disposition home or self-care (01) ==
PROVIDERS: PCP Family Medicine; Visit Provider Internal Medicine Gastroenterology
PROC: 0DJD8ZZ Inspection of Lower Intestinal Tract, Via Natural or Artificial Opening Endoscopic (ICD-10-PCS; CPT 45378; principal; 2022-09-28 08:00)
DX: Z12.11 Encounter for screening for malignant neoplasm of colon (principal); D12.2 Benign neoplasm of ascending colon; K64.8 Other hemorrhoids; Z87.19 Personal history of other diseases of the digestive system; I10 Essential (primary) hypertension; K21.9 Gastro-esophageal reflux disease without esophagitis; J43.9 Emphysema, unspecified; E78.00 Pure hypercholesterolemia, unspecified; Z87.891 Personal history of nicotine dependence; Z79.82 Long term (current) use of aspirin; E66.9 Obesity, unspecified; Z68.29 Body mass index [BMI] 29.0-29.9, adult; Z95.5 Presence of coronary angioplasty implant and graft
CPT/HCPCS: 45385; 88305; J2704; J7120

== ENCOUNTER 2023-01-06 15:30 | Emergency (ER) | payer MEDICARE, SELFPAY ==
--- NOTE | ~2023-01-06 | XR_ITS ---
EXAM: XR knee RT min 4V DATE: 01/06/2023 15:55 HISTORY: fall onto bricks; pain ant Rt knee . COMPARISON: None available. FINDINGS: Normal mineralization. Nondisplaced vertically oriented fracture along the lateral aspect of the patella. No lytic or blastic lesion. Mild tricompartmental arthritis with chondrocalcinosis. N o erosion or periosteal change. Anterior soft tissue swelling. Moderate joint effusion. IMPRESSION: Nondisplaced, vertically oriented lateral right patellar fracture. Reviewed, dictated and finalized at location K.
--- NOTE | ~2023-01-06 | CT_ITS ---
EXAMINATION: CT cervical spine wo con DATE: 01/06/2023 17:36 INDICATION: head injury TECHNIQUE: Computed tomography (CT) of the cervical spine was performed without intravenous contrast. Automated exposure control and iterative reconstruction technique were employed. The dose-length pro duct was 500.77 mGy-cm. COMPARISON: CT soft tissue neck 05/04/2022. FINDINGS: Vertebral Body Alignment: Intact. Craniocervical and atlantoaxial alignment: Moderate degenerative change. Alignment intact. Osseous structures/fracture: No evidence of a lytic or blastic process in the visualized spine. No e vidence of acute fracture. Cervical soft tissues: The paraspinal soft tissues planes are maintained. Degenerative changes: Degenerative changes, without severe neural foraminal or central canal narrowin g. IMPRESSION: No acute fracture or traumatic malalignment in the cervical spine. Reviewed, dictated and finalized at location K.
--- NOTE | ~2023-01-06 | CT_ITS ---
EXAMINATION: CT brain wo con DATE: 01/06/2023 17:36 INDICATION: head injury . TECHNIQUE: Computed tomography (CT) of the head was performed without intravenous contrast. The mA wa s adjusted according to patient size. Iterative reconstruction technique was employed. The dose-lengt h product was 605.33 mGy-cm. COMPARISON: None. FINDINGS: No acute intracranial hemorrhage or extra-axial fluid collection. No hydrocephalus, mass, or herniation. No acute ischemic infarct. Unremarkable dural venous sinus attenuation. No acute osseous abnormality. Decreased aeration, osseous sclerosis, and small volume fluid in the right mastoid air cells, the rem aining aerated spaces are clear. IMPRESSION: No acute intracranial process. Reviewed, dictated and finalized at location K.
[2023-01-06 15:34] VITALS: BP 127/63; PULSE 78; RESP 16; TEMP 36.4; O2SAT 95
--- NOTE | 2023-01-06 17:15 | ED.LOWEXIN ---
HPI - Extremity Injury (Lower) General Chief Complaint: Extremity Injury, Lower Stated Complaint: fall Time Seen by Provider: 01/06/23 15:48 History of Present Illness HPI Narrative: 67-year-old male who history of hypertension, GERD, CAD reports for evaluation for right knee pain after a fall that occurred at 8 AM this morning. Patient states he was carrying a box while moving, did not see a stack of bricks in front of him, tripped over the bricks and fell to the ground. He does report hitting his head on his right frontal scalp and hitting his knee. He does not recall the mechanism of his knee injury or whether he twisted it. He is reporting pain to the anterior aspect of the knee overlying the patella with superficial abrasions. His last tetanus was within the past 10 years. Bleeding controlled. He is not on any blood thinners. Denies LOC, neck pain, back pain, hip pain, other injuries acquired. He is able to ambulate but states it causes worsening pain. Related Data Home Medications Medication Instructions Recorded Confirmed Lactobacillus acidophilus 1 100 mg PO DAILY 03/14/19 09/15/22 billion cell capsule (Probiotic Gold Acidophilus) glucosam 750 mg-chondroi 100 1 tablet PO DAILY 10/18/20 09/15/22 mg-hyalur 1.65 mg-CF borate 108 mg tablet ([employer]) aspirin 81 mg tablet 81 mg PO DAILY 09/12/21 09/15/22 nitroglycerin 0.4 mg sublingual 0.4 mg sublingual Q5M PRN Chest 10/14/21 09/15/22 tablet Pain loratadine 10 mg tablet (Claritin) 10 mg PO DAILY 09/15/22 09/15/22 Allergies Allergy/AdvReac Type Severity Reaction Status Date / Time Penicillins AdvReac Mild Rash Verified 01/06/23 15:37 Review of Systems Review of Systems: CONSTITUTIONAL: Denies fever, chills EYES: Denies visual changes, redness, or discharge. ENT: Denies rhinorrhea, congestion, sore throat, or otalgia. CARDIOVASCULAR: Denies chest pain, palpitations, or edema. RESPIRATORY: Denies cough or dyspnea. GASTROINTESTINAL: Denies abdominal pain, nausea, vomiting, or diarrhea. GENITOURINARY: Denies dysuria or hematuria. SKIN: Denies rash or itching. MUSCULOSKELETAL: See HPI NEUROLOGIC: Denies headache, numbness, dizziness, or weakness. PSYCHIATRIC: Denies anxiety or depression. [facility] Past Medical History Medical History Atherosclerosis of both carotid arteries Cervical strain Colon ulcer Deviated septum Emphysema lung GERD (gastroesophageal reflux disease) Hypertension, essential Personal history of colonic polyps Pure hypercholesterolemia, unspecified Surgical History Surgical History History of inguinal hernia repair laparoscopic left inguinal hernia repair with Progrip mesh, daVinci assisted 04/16/19 History of tonsillectomy Hx of right inguinal hernia repair Open hernia repair~1979 Status post correction of deviated nasal septum Family History Family History Father Lung cancer Sibling Breast cancer Hypertension Other No problems noted. Social History Social History Smoking packs per day: 1.5 Smoking cigarettes per day: 30.0 Years smoked: 45 Smoking pack-years: 67.50 Smoking status: Former smoker Tobacco type: cigarettes Second hand tobacco smoke exposure: No Smoking end date: 06/14/21 Alcohol intake: current Drinks per week: 1 Alcohol use details: Socially Substance use: never Substance use type: does not use Lack of Transportation: No Lack of Food: Never True Current Housing: I Have Housing Concerned About Future Housing: No Difficulty Paying Gas/Electric Bills: No Difficulty Paying for Meds: No Currently Unemployed: No Difficulty w/ Childcare or Family Care: No Living arrangements: with family Occupation/Education: ret
--- NOTE | 2023-01-06 17:21 | PC.NURSE ---
Patient off unit to CT.
[2023-01-06] MEDS: HYDROcodone/acetaminophen (*CRX) 5-325 MG TABLET 1 TAB PO (17:36)
== END 2023-01-06 18:35 | disposition home or self-care (01) ==
PROVIDERS: Emergency Provider Physician Assistant; PCP Family Medicine
DX: S82.024A Nondisplaced longitudinal fracture of right patella, initial encounter for closed fracture (principal); S09.90XA Unspecified injury of head, initial encounter; I10 Essential (primary) hypertension; I25.10 Atherosclerotic heart disease of native coronary artery without angina pectoris; J43.9 Emphysema, unspecified; Z87.891 Personal history of nicotine dependence; W01.0XXA Fall on same level from slipping, tripping and stumbling without subsequent striking against object, initial encounter
CPT/HCPCS: 70450; 72125; 73564; 99284; A9270

== ENCOUNTER 2024-05-28 15:19 | Outpatient (CLI) | payer BC, SELFPAY ==
--- NOTE | ~2024-05-28 | XR_ITS ---
EXAM: XR knee LT 3V DATE: 05/28/2024 15:41 HISTORY: M17.0 - Bilateral primary osteoarthritis of knee . COMPARISON: 07/22/2005. FINDINGS: Normal mineralization. No fracture or dislocation. No lytic or blastic lesion. Moderate me dial joint space narrowing. Mild tricompartmental osteophytosis. Chondrocalcinosis. No erosion or per iosteal change. Soft tissues within normal limits. IMPRESSION: Tricompartmental osteoarthritis, moderate in the medial compartment. Reviewed, dictated and finalized at location K. FURNACE INSTALLER IMPRESSION: Tricompartmental osteoarthritis, moderate in the medial compartment .
--- NOTE | ~2024-05-28 | XR_ITS ---
EXAM: XR knee RT 3V DATE: 05/28/2024 15:41 HISTORY: M17.0 - Bilateral primary osteoarthritis of knee . COMPARISON: 01/06/2023. FINDINGS: Normal mineralization. No acute fracture or dislocation. Healed patellar fracture. No lyti c or blastic lesion. Moderate medial joint space narrowing. Mild tricompartmental osteophytosis. No e rosion or periosteal change. Soft tissues within normal limits. IMPRESSION: Tricompartmental osteoarthritis, moderate in the medial compartment. Reviewed, dictated and finalized at location K. [employer]ANCE AND APPEALS COORDINATOR IMPRESSION: Tricompartmental osteoarthritis, moderate in the medial compartment .
== END 2024-05-28 15:20 | disposition home or self-care (01) ==
PROVIDERS: PCP Family Medicine; Visit Provider Family Medicine
DX: M17.0 Bilateral primary osteoarthritis of knee (principal)
CPT/HCPCS: 73562